=== PATIENT | male | born 1965 | race African-American/Black ===

== ENCOUNTER 2023-01-06 19:57 | Inpatient (IN) | payer OTHER ==
[2023-01-06 20:17] VITALS: BMI 27.3
[2023-01-06] MEDS ORDERED: SODIUM CHLORIDE 0.9% 500 ML INFUS.BAG IV ONE ×2 (20:58→21:50)
[2023-01-06] MEDS ORDERED: ONDANSETRON 4 MG/2 ML VIAL IVPUSH ONE (20:58)
[2023-01-06] MEDS ORDERED: FAMOTIDINE 20 MG/50 ML IVPB 20 MG/50 ML MG IVPB ONE ×2 (20:58→21:16)
[2023-01-06] MEDS ORDERED: ACETAMINOPHEN 1000 MG/100 ML BAG IVPB ONE (21:01)
[2023-01-06] MEDS ORDERED: ACETAMINOPHEN INJECTION 100 ML IVPB ONE (21:16)
[2023-01-06] MEDS ORDERED: ONDANSETRON 4 MG/2 ML VIAL ONE (21:16)
[2023-01-06] MEDS ORDERED: PIPERACILLIN/TAZOB 4.5 GM 4.5 GM in DEXTROSE 5%-WATER 100 ML IVPB ONE (21:30)
[2023-01-06 21:31] LABS: HEMATOCRIT 44.2 % (35.4-49); HEMOGLOBIN 15.1 GM/dL (11.7-16.9); MCH 27.6 pg (25.7-33.7); MCHC 34.3 g/dl (32.0-35.9); MEAN CELL VOLUME 80.6 fl (80-96); MEAN PLT VOLUME 9.2 fl (7.5-11.1); PLATELET COUNT 178 10^3/uL (134-434); RBC 5.48 M/mm3 (4.00-5.60); RDW 14.1 % (11.9-15.9); WHITE BLOOD COUNT 11.7 K/mm3 (4.0-10.0)
[2023-01-06] MEDS ORDERED: VANCOMYCIN/WATER 1,250 MG/250 ML BAG (RESTRICTED TO ID ONLY) IVPB ONE (21:33)
[2023-01-06 21:38] LABS: INR 1.33 (0.83-1.09); PROTHROMBIN TIME (PATIENT) 15.4 SEC (9.7-13.0)
[2023-01-06] MEDS ORDERED: VANCOMYCIN/WATER 1250 MG 1,250 MG/250 ML BAG IVPB ONE (21:39)
[2023-01-06] MEDS ORDERED: PIPERACILLIN/TAZOB 4.5 GM 4.5 GM/100 ML BAG IVPB ONE (21:39)
[2023-01-06 21:41] LABS: ACTIVATED PTT 30.2 SECONDS (25.2-36.5)
[2023-01-06 21:45] LABS: EPI CELLS 11 /uL (0-25.1); HYALINE CASTS 6 /uL (0-3.1); PH,URINE 5.5 (5.0-8.0); URINE APPEARANCE CLEAR; URINE BACTERIA 13 /uL (0-1359); URINE BILIRUBIN 1+ (NEGATIVE); URINE COLOR DK YELLOW; URINE GLUCOSE (UA) NEGATIVE (NEGATIVE); URINE KETONE 1+ (NEGATIVE); URINE LEUK ESTERASE 1+ (NEGATIVE); URINE NITRITE NEGATIVE (NEGATIVE); URINE PROTEIN 2+ (NEGATIVE); URINE WBC 246 /uL (0-25.8)
[2023-01-06 21:50] LABS: CHLORIDE 101 mmol/L (98-107); POTASSIUM 3.6 mmol/L (3.5-5.1); SODIUM 138 mmol/L (136-145)
[2023-01-06 21:51] LABS: VENOUS O2 SATURATION 61.9 % (70-80); VENOUS PCO2 43.7 mmHg (38-52); VENOUS PH 7.451 (7.310-7.410)
[2023-01-06 21:53] LABS: ALBUMIN 3.2 g/dl (3.4-5.0); ANION GAP 7 MMOL/L (8-16); BLOOD UREA NITROGEN 7.8 mg/dL (7-18); CALCIUM 9.5 mg/dL (8.5-10.1); CO2 30 mmol/L (21-32); GLUCOSE,RANDOM 100 mg/dL (74-106); LIPASE 58 U/L (73-393); MAGNESIUM 1.9 mg/dL (1.8-2.4)
[2023-01-06 21:56] LABS: SGOT/AST 212 U/L (15-37); SGPT/ALT 300 U/L (13-61)
[2023-01-06 21:58] LABS: BILIRUBIN,TOTAL 1.7 mg/dL (0.2-1); TOT PROT 6.8 g/dl (6.4-8.2)
[2023-01-06 21:59] LABS: ALK PHOS 169 U/L (45-117)
[2023-01-06 22:24] LABS: ANISOCYTOSIS 1+; MACROCYTOSIS 0; PLATELET ESTIMATE NORMAL
[2023-01-07] MEDS: PIPERACILLIN/TAZOB 4.5 GM 4.5 GM in DEXTROSE 5%-WATER 100 ML IVPB SCH ×4 (03:48→21:46)
[2023-01-07] MEDS: LACTATED RINGERS SOLUTION 1,000 ML/1,000 ML INFUS.BAG IV SCH ×2 (03:49→17:45)
[2023-01-07] MEDS ORDERED: PIPERACILLIN/TAZOB 4.5 GM 4.5 GM in DEXTROSE 5%-WATER 100 ML IVPB SCH (04:00)
[2023-01-07] MEDS: TAMSULOSIN HCL 0.4 MG CAP PO SCH (08:26)
[2023-01-07] MEDS ORDERED: PATIENT'S OWN MEDICATION (NON-FORMULARY) (Lisinopril/Hydrochlorothiazide [Lisinopril-Hctz PO SCH (10:00)
[2023-01-07] MEDS: LISINOPRIL 20 MG TABLET PO SCH (10:25)
[2023-01-07] MEDS: ENOXAPARIN NA (PORCINE) 40 MG/0.4 ML DISP.SYRIN SQ SCH (10:25)
[2023-01-07] MEDS: HYDROCHLOROTHIAZIDE 25 MG TABLET (FP) PO SCH (10:25)
[2023-01-07] MEDS: PANTOPRAZOLE SODIUM 40 MG VIAL IVPUSH SCH (10:25)
[2023-01-07] MEDS: VANCOMYCIN/WATER 1,250 MG/250 ML BAG (RESTRICTED TO ID ONLY) IVPB SCH ×2 (10:25→23:13)
[2023-01-07 10:44] LABS: HEMATOCRIT 36.9 % (35.4-49); HEMOGLOBIN 12.6 GM/dL (11.7-16.9); MCH 27.6 pg (25.7-33.7); MCHC 34.3 g/dl (32.0-35.9); MEAN CELL VOLUME 80.6 fl (80-96); MEAN PLT VOLUME 8.9 fl (7.5-11.1); PLATELET COUNT 171 10^3/uL (134-434); RBC 4.58 M/mm3 (4.00-5.60); RDW 14.4 % (11.9-15.9); WHITE BLOOD COUNT 16.1 K/mm3 (4.0-10.0)
[2023-01-07 11:13] LABS: CALCIUM 8.1 mg/dL (8.5-10.1)
[2023-01-07 11:14] LABS: BLOOD UREA NITROGEN 6.9 mg/dL (7-18); MAGNESIUM 1.8 mg/dL (1.8-2.4)
[2023-01-07 11:18] LABS: BILIRUBIN,TOTAL 1.9 mg/dL (0.2-1)
[2023-01-07 11:19] LABS: TOT PROT 5.5 g/dl (6.4-8.2)
[2023-01-07 11:22] LABS: ALBUMIN 2.5 g/dl (3.4-5.0)
[2023-01-07] MEDS ORDERED: VANCOMYCIN/WATER 1,250 MG/250 ML BAG (RESTRICTED TO ID ONLY) IVPB SCH (11:30)
[2023-01-07] MEDS ORDERED: ACETAMINOPHEN 325 MG TABLET (FP) PO PRN (13:13)
[2023-01-07] MEDS ORDERED: MELATONIN 5 MG TABLETS PO ONE (20:29)
[2023-01-07] MEDS: ATORVASTATIN CA 10 MG TABLET (FP) PO SCH (21:46)
[2023-01-07] MEDS: MONTELUKAST NA 10 MG TABLET PO SCH (21:46)
[2023-01-08] MEDS ORDERED: PIPERACILLIN/TAZOB 4.5 GM 4.5 GM in DEXTROSE 5%-WATER 100 ML IVPB ONE ×2 (00:53→04:00)
[2023-01-08] MEDS: LACTATED RINGERS SOLUTION 1,000 ML/1,000 ML INFUS.BAG IV SCH (02:34)
[2023-01-08] MEDS: TAMSULOSIN HCL 0.4 MG CAP PO SCH (08:20)
[2023-01-08] MEDS: PANTOPRAZOLE SODIUM 40 MG VIAL IVPUSH SCH (09:52)
[2023-01-08] MEDS: ENOXAPARIN NA (PORCINE) 40 MG/0.4 ML DISP.SYRIN SQ SCH (09:52)
[2023-01-08] MEDS: HYDROCHLOROTHIAZIDE 25 MG TABLET (FP) PO SCH (09:52)
[2023-01-08] MEDS: LISINOPRIL 20 MG TABLET PO SCH (09:53)
[2023-01-08 10:07] LABS: BASO % 0.2 % (0-2.0); EOS % 0.3 % (0-4.5); HEMATOCRIT 41.1 % (35.4-49); MCH 27.2 pg (25.7-33.7); MEAN CELL VOLUME 79.9 fl (80-96); MEAN PLT VOLUME 8.9 fl (7.5-11.1); MONO % 16.3 % (3.8-10.2); NEUT % 75.2 % (42.8-82.8); PLATELET COUNT 191 10^3/uL (134-434); RBC 5.15 M/mm3 (4.00-5.60); RDW 14.3 % (11.9-15.9); WHITE BLOOD COUNT 11.9 K/mm3 (4.0-10.0)
[2023-01-08 10:22] LABS: POTASSIUM 3.1 mmol/L (3.5-5.1)
[2023-01-08] MEDS ORDERED: POTASSIUM CHLORIDE TABS 20 MEQ TABLET.ER (FP) PO ONE (10:23)
[2023-01-08 10:30] LABS: BLOOD UREA NITROGEN 4.9 mg/dL (7-18); CALCIUM 8.7 mg/dL (8.5-10.1); MAGNESIUM 2.1 mg/dL (1.8-2.4)
[2023-01-08 10:33] LABS: PHOSPHOROUS 1.9 mg/dL (2.5-4.9)
[2023-01-08] MEDS: PIPERACILLIN/TAZOB 4.5 GM 4.5 GM in DEXTROSE 5%-WATER 100 ML IVPB SCH ×3 (10:38→20:37)
[2023-01-08] MEDS: ATORVASTATIN CA 10 MG TABLET (FP) PO SCH (21:02)
[2023-01-08] MEDS: MONTELUKAST NA 10 MG TABLET PO SCH (21:02)
[2023-01-09] MEDS: PIPERACILLIN/TAZOB 4.5 GM 4.5 GM in DEXTROSE 5%-WATER 100 ML IVPB SCH ×4 (02:08→21:15)
[2023-01-09 09:28] LABS: BASO % 0.5 % (0-2.0); EOS % 0.8 % (0-4.5); HEMATOCRIT 44.2 % (35.4-49); HEMOGLOBIN 14.9 GM/dL (11.7-16.9); LYMPH % 11.7 % (8-40); MCH 27.3 pg (25.7-33.7); MCHC 33.8 g/dl (32.0-35.9); MEAN CELL VOLUME 80.7 fl (80-96); MONO % 15.2 % (3.8-10.2); NEUT % 71.8 % (42.8-82.8); PLATELET COUNT 227 10^3/uL (134-434); RBC 5.48 M/mm3 (4.00-5.60); RDW 14.5 % (11.9-15.9); WHITE BLOOD COUNT 10.5 K/mm3 (4.0-10.0)
[2023-01-09 09:41] LABS: POTASSIUM 3.5 mmol/L (3.5-5.1)
[2023-01-09 09:46] LABS: ALBUMIN 2.6 g/dl (3.4-5.0); BLOOD UREA NITROGEN 5.1 mg/dL (7-18); CALCIUM 8.8 mg/dL (8.5-10.1); MAGNESIUM 2.3 mg/dL (1.8-2.4)
[2023-01-09 09:48] LABS: BILIRUBIN,TOTAL 0.8 mg/dL (0.2-1)
[2023-01-09 09:50] LABS: TOT PROT 6.2 g/dl (6.4-8.2)
[2023-01-09] MEDS: LISINOPRIL 20 MG TABLET PO SCH (10:04)
[2023-01-09] MEDS: TAMSULOSIN HCL 0.4 MG CAP PO SCH (10:04)
[2023-01-09] MEDS: HYDROCHLOROTHIAZIDE 25 MG TABLET (FP) PO SCH (10:04)
[2023-01-09] MEDS: PANTOPRAZOLE SODIUM 40 MG VIAL IVPUSH SCH (10:05)
[2023-01-09] MEDS: ENOXAPARIN NA (PORCINE) 40 MG/0.4 ML DISP.SYRIN SQ SCH (10:05)
[2023-01-09] MEDS: NAPH,MB-DB/K PH,MBDB POWDER PACKET PO SCH ×2 (10:19→21:16)
[2023-01-09] MEDS: ATORVASTATIN CA 10 MG TABLET (FP) PO SCH (21:15)
[2023-01-09] MEDS: MONTELUKAST NA 10 MG TABLET PO SCH (21:15)
[2023-01-10] MEDS: PIPERACILLIN/TAZOB 4.5 GM 4.5 GM in DEXTROSE 5%-WATER 100 ML IVPB SCH ×2 (02:25→09:45)
[2023-01-10 10:08] LABS: POTASSIUM 3.2 mmol/L (3.5-5.1)
[2023-01-10 10:15] LABS: CALCIUM 8.7 mg/dL (8.5-10.1)
[2023-01-10 10:16] LABS: ALBUMIN 2.7 g/dl (3.4-5.0); BLOOD UREA NITROGEN 5.1 mg/dL (7-18); MAGNESIUM 2.3 mg/dL (1.8-2.4)
[2023-01-10 10:17] LABS: BILIRUBIN,TOTAL 0.6 mg/dL (0.2-1); HEMATOCRIT 43.9 % (35.4-49); HEMOGLOBIN 14.8 GM/dL (11.7-16.9); MCHC 33.7 g/dl (32.0-35.9); MEAN PLT VOLUME 8.8 fl (7.5-11.1); PLATELET COUNT 255 10^3/uL (134-434); RBC 5.49 M/mm3 (4.00-5.60); RDW 14.3 % (11.9-15.9); TOT PROT 6.2 g/dl (6.4-8.2); WHITE BLOOD COUNT 11.1 K/mm3 (4.0-10.0)
[2023-01-10 10:19] LABS: CREATININE 0.9 mg/dL (0.55-1.3)
[2023-01-10 10:50] LABS: ANISOCYTOSIS 0; HELMET CELLS 0; HOWELL-JOLLY BODIES 0; MACROCYTOSIS 0; OVALOCYTE 0; ROULEAU 0; SICKELED CELLS 0; TARGET CELLS 0; TEAR DROP CELLS 0; TOXIC GRANULATION 0
[2023-01-10] MEDS: PANTOPRAZOLE 40 MG TABLET PO SCH (11:16)
[2023-01-10] MEDS: TAMSULOSIN HCL 0.4 MG CAP PO SCH (11:16)
[2023-01-10] MEDS: HYDROCHLOROTHIAZIDE 25 MG TABLET (FP) PO SCH (11:16)
[2023-01-10] MEDS: ENOXAPARIN NA (PORCINE) 40 MG/0.4 ML DISP.SYRIN SQ SCH (11:16)
[2023-01-10] MEDS: LISINOPRIL 20 MG TABLET PO SCH (11:16)
[2023-01-10] MEDS: MONTELUKAST NA 10 MG TABLET PO SCH (21:10)
[2023-01-10] MEDS: ATORVASTATIN CA 10 MG TABLET (FP) PO SCH (21:10)
[2023-01-11] MEDS ORDERED: methylPREDNISolone NA SUCC 40 MG/1 ML VIAL IVPUSH ONE (00:09)
[2023-01-11] MEDS: LISINOPRIL 20 MG TABLET PO SCH (09:49)
[2023-01-11] MEDS: ENOXAPARIN NA (PORCINE) 40 MG/0.4 ML DISP.SYRIN SQ SCH (09:49)
[2023-01-11] MEDS: PANTOPRAZOLE 40 MG TABLET PO SCH (09:49)
[2023-01-11] MEDS: HYDROCHLOROTHIAZIDE 25 MG TABLET (FP) PO SCH (09:49)
[2023-01-11] MEDS: TAMSULOSIN HCL 0.4 MG CAP PO SCH (09:49)
[2023-01-11 10:16] LABS: BASO % 0.2 % (0-2.0); EOS % 0.1 % (0-4.5); HEMATOCRIT 44.8 % (35.4-49); HEMOGLOBIN 15.4 GM/dL (11.7-16.9); LYMPH % 8.5 % (8-40); MCH 27.7 pg (25.7-33.7); MCHC 34.3 g/dl (32.0-35.9); MEAN CELL VOLUME 80.8 fl (80-96); MEAN PLT VOLUME 8.5 fl (7.5-11.1); MONO % 3.8 % (3.8-10.2); NEUT % 87.4 % (42.8-82.8); PLATELET COUNT 290 10^3/uL (134-434); RBC 5.54 M/mm3 (4.00-5.60); RDW 14.7 % (11.9-15.9); WHITE BLOOD COUNT 10.5 K/mm3 (4.0-10.0)
[2023-01-11 10:34] LABS: POTASSIUM 3.6 mmol/L (3.5-5.1)
[2023-01-11 10:36] LABS: CALCIUM 9.1 mg/dL (8.5-10.1)
[2023-01-11 10:37] LABS: ALBUMIN 2.7 g/dl (3.4-5.0); MAGNESIUM 2.1 mg/dL (1.8-2.4)
[2023-01-11 10:40] LABS: CREATININE 1.1 mg/dL (0.55-1.3); PHOSPHOROUS 2.4 mg/dL (2.5-4.9)
[2023-01-11 10:41] LABS: BILIRUBIN,TOTAL 0.5 mg/dL (0.2-1)
[2023-01-11 10:42] LABS: TOT PROT 6.7 g/dl (6.4-8.2)
[2023-01-11] MEDS: MONTELUKAST NA 10 MG TABLET PO SCH (22:30)
[2023-01-11] MEDS: ATORVASTATIN CA 10 MG TABLET (FP) PO SCH (22:30)
[2023-01-12] MEDS: TAMSULOSIN HCL 0.4 MG CAP PO SCH (09:25)
[2023-01-12] MEDS: HYDROCHLOROTHIAZIDE 25 MG TABLET (FP) PO SCH (09:26)
[2023-01-12] MEDS: ENOXAPARIN NA (PORCINE) 40 MG/0.4 ML DISP.SYRIN SQ SCH (09:26)
[2023-01-12] MEDS: PANTOPRAZOLE 40 MG TABLET PO SCH (09:27)
[2023-01-12] MEDS: LISINOPRIL 20 MG TABLET PO SCH (09:27)
[2023-01-12 11:16] LABS: HEMATOCRIT 45.2 % (35.4-49); HEMOGLOBIN 15.2 GM/dL (11.7-16.9); MCH 26.8 pg (25.7-33.7); MCHC 33.6 g/dl (32.0-35.9); PLATELET COUNT 330 10^3/uL (134-434); RBC 5.65 M/mm3 (4.00-5.60); RDW 14.8 % (11.9-15.9); WHITE BLOOD COUNT 11.9 K/mm3 (4.0-10.0)
[2023-01-12 11:39] LABS: POTASSIUM 3.5 mmol/L (3.5-5.1)
[2023-01-12 11:41] LABS: CALCIUM 8.8 mg/dL (8.5-10.1)
[2023-01-12 11:42] LABS: BLOOD UREA NITROGEN 10.4 mg/dL (7-18)
[2023-01-12 11:44] LABS: ALBUMIN 2.9 g/dl (3.4-5.0)
[2023-01-12 11:46] LABS: TOT PROT 6.6 g/dl (6.4-8.2)
[2023-01-12 11:47] LABS: BILIRUBIN,TOTAL 0.6 mg/dL (0.2-1)
[2023-01-12 12:10] LABS: ANISOCYTOSIS 0; HELMET CELLS 0; HOWELL-JOLLY BODIES 0; MACROCYTOSIS 0; OVALOCYTE 0; ROULEAU 0; SICKELED CELLS 0; TARGET CELLS 0; TEAR DROP CELLS 0; TOXIC GRANULATION 0
[2023-01-12 19:03] VITALS: RESP 18
[2023-01-12] MEDS: MONTELUKAST NA 10 MG TABLET PO SCH (21:48)
[2023-01-12] MEDS: ATORVASTATIN CA 10 MG TABLET (FP) PO SCH (21:48)
[2023-01-13] MEDS: TAMSULOSIN HCL 0.4 MG CAP PO SCH (08:23)
[2023-01-13] MEDS: LISINOPRIL 20 MG TABLET PO SCH (10:23)
[2023-01-13] MEDS: PANTOPRAZOLE 40 MG TABLET PO SCH (10:23)
[2023-01-13] MEDS: HYDROCHLOROTHIAZIDE 25 MG TABLET (FP) PO SCH (10:23)
[2023-01-13] MEDS: ENOXAPARIN NA (PORCINE) 40 MG/0.4 ML DISP.SYRIN SQ SCH (10:23)
[2023-01-13 11:18] VITALS: BP 135/73; PULSE 90; TEMP 99
[2023-01-13 11:54] LABS: POTASSIUM 3.9 mmol/L (3.5-5.1)
[2023-01-13 11:58] LABS: ALBUMIN 2.8 g/dl (3.4-5.0); BLOOD UREA NITROGEN 9.9 mg/dL (7-18)
[2023-01-13 12:01] LABS: CREATININE 1.1 mg/dL (0.55-1.3)
[2023-01-13 12:03] LABS: TOT PROT 6.7 g/dl (6.4-8.2)
[2023-01-13 12:05] LABS: BILIRUBIN,TOTAL 0.5 mg/dL (0.2-1)
[2023-01-15 03:07] LABS: FIBROSIS SCORE. 0.28 (0.00-0.21); HCV ALPHA 2 MACRO CHART 123 mg/dL (110-276); NECROINFLAM. ACTIVITY GRADE A3-Severe activity (.)
== END 2023-01-13 13:06 | disposition home or self-care (01) | DRG 721 ==
LOC: JER 19:57 → JERBED 22:15 → J5S 01-07 03:06
PROVIDERS: ADMIT Internal Medicine; ATTEND Internal Medicine
DX: T81.40XA Infection following a procedure, unspecified, initial encounter (principal); A41.9 Sepsis, unspecified organism; K57.90 Diverticulosis of intestine, part unspecified, without perforation or abscess without bleeding; R50.9 Fever, unspecified; N40.0 Benign prostatic hyperplasia without lower urinary tract symptoms; N39.0 Urinary tract infection, site not specified; K29.60 Other gastritis without bleeding; R11.2 Nausea with vomiting, unspecified; K40.90 Unilateral inguinal hernia, without obstruction or gangrene, not specified as recurrent; I10 Essential (primary) hypertension; L27.1 Localized skin eruption due to drugs and medicaments taken internally; T36.0X5A Adverse effect of penicillins, initial encounter; R79.89 Other specified abnormal findings of blood chemistry; E78.5 Hyperlipidemia, unspecified; K21.9 Gastro-esophageal reflux disease without esophagitis; R00.0 Tachycardia, unspecified; J45.909 Unspecified asthma, uncomplicated; Y84.8 Other medical procedures as the cause of abnormal reaction of the patient, or of later complication, without mention of misadventure at the time of the procedure
CPT/HCPCS: 0241U-QW; 36415; 71045-TC-FY; 74177-TC; 76705-TC; 80048; 80053; 81003; 82172; 82248; 82550; 82553; 82803; 82977; 83010; 83605; 83690; 83735; 83883; 84100; 84460; 84484; 85025; 85027; 85610; 85730; 86707; 86708; 87040; 87086; 87186; 87340; 87517; 93005; 93010; 99285-25

== ENCOUNTER 2023-09-15 15:23 | Emergency (ER) | payer OTHER ==
[2023-09-15 15:48] VITALS: BP 127/76; PULSE 102; RESP 18; TEMP 98.1; BMI 27.3
[2023-09-15] MEDS ORDERED: ONDANSETRON 4 MG/2 ML VIAL IVPUSH ONE (16:28)
[2023-09-15] MEDS ORDERED: SODIUM CHLORIDE 0.9% 500 ML INFUS.BAG IV ONE (16:28)
[2023-09-15] MEDS ORDERED: FAMOTIDINE 20 MG/50 ML IVPB 20 MG/50 ML MG IVPB ONE ×2 (16:28→17:47)
[2023-09-15] MEDS ORDERED: ACETAMINOPHEN 1000 MG/100 ML BAG IVPB ONE (16:28)
[2023-09-15] MEDS ORDERED: ACETAMINOPHEN INJECTION 100 ML IVPB ONE (17:47)
[2023-09-15] MEDS ORDERED: ONDANSETRON 4 MG/2 ML VIAL ONE (17:47)
[2023-09-15 17:53] LABS: BASO % 0.1 % (0-2.0); EOS % 0.5 % (0-4.5); HEMATOCRIT 47.8 % (35.4-49); HEMOGLOBIN 15.5 GM/dL (11.7-16.9); LYMPH % 3.1 % (8-40); MCH 26.8 pg (25.7-33.7); MCHC 32.5 g/dl (32.0-35.9); MEAN CELL VOLUME 82.5 fl (80-96); MEAN PLT VOLUME 8.4 fl (7.5-11.1); MONO % 6.5 % (3.8-10.2); NEUT % 89.8 % (42.8-82.8); PLATELET COUNT 258 10^3/uL (134-434); RDW 14.5 % (11.9-15.9); WHITE BLOOD COUNT 8.8 K/mm3 (4.0-10.0)
[2023-09-15 18:00] LABS: INR 1.21 (0.83-1.09)
[2023-09-15 18:14] LABS: PH,URINE 5.5 (5.0-8.0); URINE APPEARANCE CLEAR; URINE BILIRUBIN NEGATIVE (NEGATIVE); URINE COLOR YELLOW; URINE GLUCOSE (UA) NEGATIVE (NEGATIVE); URINE KETONE 2+ (NEGATIVE); URINE LEUK ESTERASE NEGATIVE (NEGATIVE); URINE NITRITE NEGATIVE (NEGATIVE); URINE PROTEIN TRACE (NEGATIVE); URINE UROBILINOGEN 0.2 mg/dL (0.2-1.0)
[2023-09-15 18:20] LABS: POTASSIUM 4.2 mmol/L (3.5-5.1)
[2023-09-15 18:22] LABS: ALBUMIN 3.9 g/dl (3.4-5.0); BLOOD UREA NITROGEN 19.4 mg/dL (7-18); CALCIUM 9.2 mg/dL (8.5-10.1); MAGNESIUM 2.1 mg/dL (1.8-2.4)
[2023-09-15 18:27] LABS: TOT PROT 7.8 g/dl (6.4-8.2)
== END 2023-09-15 19:35 | disposition home or self-care (01) ==
LOC: JER 15:23
PROC: 3E033GC Introduction of Other Therapeutic Substance into Peripheral Vein, Percutaneous Approach (ICD-10-PCS; principal; 2023-09-15)
PROC: 3E033NZ Introduction of Analgesics, Hypnotics, Sedatives into Peripheral Vein, Percutaneous Approach (ICD-10-PCS; 2023-09-15)
PROC: 3E033GC Introduction of Other Therapeutic Substance into Peripheral Vein, Percutaneous Approach (ICD-10-PCS; 2023-09-15)
DX: R11.2 Nausea with vomiting, unspecified (principal); R19.7 Diarrhea, unspecified; R10.13 Epigastric pain; R53.1 Weakness; Z20.822 Contact with and (suspected) exposure to COVID-19
CPT/HCPCS: 0241U-QW; 36415; 80053; 81003; 83690; 83735; 84484; 85025; 85610; 87086; 99284-25

== ENCOUNTER 2024-04-09 06:00 | Day surgery (SDC) | payer OTHER ==
[2024-04-01 09:38] VITALS: BMI 27.8
[2024-04-09] MEDS ORDERED: LIDOCAINE HCL 1%, 10 MG/ML (20ML VIAL) ONE (07:19)
[2024-04-09] MEDS ORDERED: PROPOFOL 20 ML ONE (07:20)
[2024-04-09] MEDS ORDERED: MIDAZOLAM HCL 2 MG/2 ML SINGLE DOSE VIAL ONE (07:20)
[2024-04-09] MEDS ORDERED: ACETAMINOPHEN 325 MG TABLET (FP) PO PRN (07:25)
[2024-04-09] MEDS ORDERED: ONDANSETRON 4 MG/2 ML VIAL IVPUSH PRN (07:25)
[2024-04-09] MEDS ORDERED: LACTATED RINGERS SOLUTION 1,000 ML IV SCH (07:30)
[2024-04-09] MEDS ORDERED: KETOROLAC TROMETHAMINE 30 MG/1 ML VIAL ONE (07:43)
[2024-04-09 08:58] VITALS: TEMP 97
[2024-04-09 09:03] VITALS: BP 149/89; PULSE 65; RESP 17
== END 2024-04-09 08:55 | disposition home or self-care (01) ==
LOC: FASU 06:00
PROVIDERS: ATTEND Orthopaedic Surgery
PROC: 0LN43ZZ Release Left Upper Arm Tendon, Percutaneous Approach (ICD-10-PCS; principal; 2024-04-09 07:53)
DX: M77.12 Lateral epicondylitis, left elbow (principal)